=== PATIENT | male | born 1950 | race Caucasian/White ===

== ENCOUNTER 2017-02-23 17:46 | Inpatient (IN) | payer MEDICARE, OTHER ==
--- NOTE | ~2017-02-23 | CN ---
Consultation Report [facility] [address] [place]. [address] NAME: NIC WEISS : 48 STATUS : ADM IN [facility]#: [id number] AGE: 66 ADM/REG DATE : 02/23/17 MR#: [id number] REPORT SERV DATE: 02/25/17 DICTATED BY: JOSE ENRIQUE HART DATE: 02/25/17 REPORT STATUS : Draft TRANSCRIBED BY: MODAlvin DATE: 02/25/17 CONSULTATION DATE OF CONSULTATION: REASON FOR CONSULTATION: Mr. Nic Weiss is a 66-year-old male, who is referred for preop evaluation. CVD PHYSICIAN: Philip Molina M.D. HISTORY OF PRESENT ILLNESS: Mr. Nic Weiss is admitted for preparation for renal surgery. The operation is expected to be quite extensive and so, we are asked to risk stratify. His previous evaluation in 2014, resulting abnormal stress test which led to a catheterization which showed only minor luminal irregularities. Since that time, he has been fairly sedentary with no regular activity. He uses a wheelchair and has had back and hip discomfort. He does have significant risk factors for coronary artery disease to include hyperlipidemia, prior history of cigarette smoking, hypertension, and diabetes. Previously a Lexiscan showed apical ischemia. I am going to ask for a PET scan. REVIEW OF SYSTEMS: Negative, however not reassuring due to his very low level of exercise. He has had no palpitations, syncope, presyncope, chest pain, chest discomfort, PND, MAZARIEGOS, productive cough, change in bowel habits, or bruising. PAST MEDICAL HISTORY: 1. History of TIA. 2. Diabetes, currently on metformin. 3. Obstructive sleep apnea, on CPAP. 4. Hypertension. 5. Hyperlipidemia, on simvastatin and fenofibrate. 6. Renal mass. SOCIAL HISTORY: He is disabled. He smoked in the past. He does not drink. He lives a very inactive lifestyle. FAMILY HISTORY: Significant for cancer only. PHYSICAL EXAMINATION: VITAL SIGNS: Blood pressure is 132/62, pulse is 75. He is afebrile. GENERAL: Resting comfortably. Nutritional status appears adequate. EYES: PERRLA. LUNGS: No labored use of accessory muscles. Without rales or wheezes. COR: PMI is not displaced. No thrills or heaves. NL S1 and S2. No S3, murmur, click, or rub. Consultation Report [facility] [address] [place]. [address] NAME: NIC WEISS : 48 STATUS : ADM IN PAT#: [id number] AGE: 66 ADM/REG DATE : 02/23/17 MR#: [id number] REPORT SERV DATE: 02/25/17 DICTATED BY: JOSE ENRIQUE HART DATE: 02/25/17 REPORT STATUS : Draft TRANSCRIBED BY: DOLLY DATE: 02/25/17 PULSES: Carotids without bruits. ABD: +BS. Nontender. EXT: No cyanosis, clubbing, or edema. SKIN: No petechiae. NEURO: Alert and oriented. Does not appear anxious or depressed. LABORATORY EVALUATION: BNP is 88, potassium is 4.4, renal function is noted to be elevated at 1.7. EKG is still pending. ASSESSMENT: At this time, we will risk stratify with PET scan. Blood pressure is adequately controlled. Follow up renal function. CLEMENTE/DOLLY Jose Enrique Hart M.D. / [id number] CC: Zach Brown Max Russell
--- NOTE | ~2017-02-23 | DS ---
Discharge Summary [facility] [address] [place]. [address] NAME: NIC ESCOBAR : 48 STATUS : DIS IN PAT#: [id number] AGE: 66 ADM/REG DATE : 02/23/17 MR#: [id number] REPORT SERV DATE: 02/27/17 DICTATED BY: SHIRA WINN DATE: 02/26/17 REPORT STATUS : Draft TRANSCRIBED BY: MODL DATE: 02/26/17 ADMISSION DATE: 02/23/2017 DISCHARGE DATE: 02/26/2017 DISCHARGE DIAGNOSES: 1. Hematuria secondary to left renal mass, the patient is scheduled to see Dr. Finley for surgery next early week. 2. Acute blood loss anemia, did not require transfusion. 3. Hypertension, did not require hypertension medications, so we are going to hold off the medication until the surgery. 4. Chronic kidney disease. CONSULTANTS: 1. Dr. Finley. 2. Dr. Hart. PROCEDURES: 1. MRI of the abdomen for the renal mass. 2. Cardiac PET scan for preoperative evaluation which was low risk. HISTORY OF PRESENT ILLNESS: This is a 66-year-old male patient, who has been suffering from hematuria for a month, who came to the hospital to get evaluation done. Please see dictated H and P. HOSPITAL COURSE: He was admitted to hospital with hematuria and had evaluation. A CT of the abdomen and pelvis showed left kidney lower pole mass. Was seen by Dr. Finley in the hospital, ordered an MRI of the renal which showed renal vein involvement and a renal mass patient. The patient will need a left-sided nephrectomy. Prior to that, the patient was required to have a cardiac evaluation. Was seen by Dr. Hart in the hospital, had a PET cardiac scan. Had a low risk. The patient remained in stable condition, did not require any transfusion for the last three days he has been in the hospital. Did not have any acute anemia symptoms. I explained to the patient about the current diagnosis, plan of care, and followup plan, and he voiced understanding. He will be discharged home from this hospitalization, and he will come back for elective nephrectomy surgery early next week. DISCHARGE MEDICATION: He will hold aspirin, hydrochlorothiazide, and lisinopril until the surgery. Continue the other medications. DISPOSITION: The patient is discharged home in stable condition. Will have elective surgery next week with Dr. Finley. TIME SPENT: More than 30 minutes. EKL/MODL Discharge Summary [address] [place]. [address] NAME: NIC ESCOBAR : 49 STATUS : DIS IN PAT#: [id number] AGE: 66 ADM/REG DATE : 02/23/17 MR#: [id number] REPORT SERV DATE: 02/27/17 DICTATED BY: SHIRA WINN DATE: 02/26/17 REPORT STATUS : Draft TRANSCRIBED BY: DOLLY DATE: 02/26/17 Shira Winn M.D. / [id number] CC: Zach Brown II
--- NOTE | ~2017-02-23 | HP ---
History And Physical [facility] [address] [facility] [place]. [address] NAME: NIC ESCOBAR : 48 STATUS : REG ER PAT#: [id number] AGE: 66 ADM/REG DATE : 02/23/17 MR#: [id number] REPORT SERV DATE: 02/23/17 DICTATED BY: LUPILLO DUNN DATE: 02/23/17 REPORT STATUS : Draft TRANSCRIBED BY: MODAlvin DATE: 02/23/17 DATE OF ADMISSION: 02/23/2017 The patient is a 66-year-old male, who presented to [facility] because of hematuria of one month's duration which was treated per his primary care provider, Keyshawn Paz with ciprofloxacin. The patient reported that he is very weak. He had weight loss and decreased appetite, extremely weak, cannot even sit in bed as well as he is complaining of intermittent hematuria. He denies any chest pain or shortness of breath. He has back pain which has increased from the baseline, but he says that he had four back surgeries in the past. He always had a chronic back pain and he said sometimes also belly pain. He denies any chest pain or shortness of breath. No rash. No headache. All 14-point review of system done and negative except what is stated in the history of present illness. PAST MEDICAL HISTORY: Past medical history per patient is known for history of hypertension, hyperlipidemia, diabetes, diabetic neuropathy. The patient denied any history of heart attacks. No history of strokes. Although the patient denied any history of heart attacks. It looks like he was seen by Dr. Molina in the past and he had cardiac evaluation by Dr. Molina prior back surgery for presurgical evaluation. He was cleared by Dr. Molina. The patient denied any history of thyroid disease as well. He has obstructive sleep apnea for which he takes CPAP mask at home. I told the to bring CPAP mask and use here. PAST SURGICAL HISTORY: Includes history of hip replacement, four back surgeries, neck surgery, and hip surgery. SOCIAL HISTORY: Quit smoking 20 years ago, used to smoke one pack per day. No alcohol. No recreational drug use. He has seven children. HOME MEDICATIONS: Include Tylenol 650 to 975 twice a day, amitriptyline 25 mg at bedtime, aspirin 81 mg daily, ciprofloxacin 500 p.o. b.i.d., Klonopin 0.5 p.o. b.i.d., fenofibrate 145 daily, hydrocodone with acetaminophen 1 tablet p.o. twice daily p.r.n. for pain, lisinopril with HCTZ one tablet p.o. daily, Bystolic 5 mg p.o. daily, nitroglycerin 0.4 mg sublingually, paroxetine 20 mg daily, simvastatin 40 mg daily, Januvia 100 mg daily. FAMILY HISTORY: Mother of stroke. Father of a cancer. He said the cancer was in his chest, but he does not know what type of cancer. ALLERGIES: NO KNOWN DRUG ALLERGIES. PHYSICAL EXAMINATION: GENERAL: Obese male, not in acute distress. Resting quietly. VITAL SIGNS: Blood pressure 129/55, temperature 98.5, heart rate 81, respirations 16, and oxygen saturation 98 on room air. HEENT: Head is atraumatic, normocephalic. Conjunctivae clear. Pupils are equal and reactive to light and accommodation. Extraocular muscles are intact. History And Physical [address] [address] NAME: NIC ESCOBAR : 48 STATUS : REG ER PAT#: [id number] AGE: 66 ADM/REG DATE : 02/23/17 MR#: [id number] REPORT SERV DATE: 02/23/17 DICTATED BY: LUPILLO DUNN DATE: 02/23/17 REPORT STATUS : Draft TRANSCRIBED BY: DOLLY DATE: 02/23/17 NECK: Supple. Trachea is midline. No supraclavicular or cervical lymphadenopathy. LUNGS: Diminished breath sounds bilaterally. Decreased respiratory effort. CARDIOVASCULAR: Regular rate and rhythm. Point of maximal impulse not displaced. ABDOMEN: Soft, obese, nontender, nondistended. Positive, normoactive bowel sounds. EXTREMITIES: No clubbing, cyanosis. No edema. NEUROLOGICAL: He is awake, alert, oriented in time, place, and person. Muscle strength is 5/5 bilaterally on upper and lower extremities. SKIN: Normal color and turgor. PSYCHIATRIC: Normal mood, slightly flat affect. LABORATORY RESULTS: Sodium 136, potassium 4.7, chloride 103, carbon dioxide 25, BUN 20, creatinine 2, blood sugar 124, ALT 19, AST 41. White count 9.4, hemoglobin 9.7, hematocrit 29.7, MCV 76.9, platelet count 332. UA showed large amount of blood, more than 182 red blood cells. Chest x-ray, mild central venous congestion. CT of the abdomen and pelvis showed large mass arising from the lower pole consistent with malignancy. Recommend additional contrast in his CT or MRI for further evaluation. Also the CT showed tiny nodule versus what is more likely some branching vessels in the right lung measuring 5 to 5 mm, fullness of left renal vein suggesting underlying tumor or thrombus present there. The vena cava itself without contrast does not show any gross abnormality. With intraluminal contrast, this could be assessed for clot or tumor extension. ASSESSMENT AND PLAN: 1. This is a 66-year-old male, who presented with hematuria for one month's duration, weakness, weight loss, decreased appetite, and lower abdominal pain. Was found to have left renal mass, highly suspicious for malignancy. 2. Questionable lung nodule. 3. Acute kidney injury on chronic kidney disease. 4. Diabetes. 5. Hypertension. 6. Obstructive sleep apnea. We will admit the patient to medical-surgical telemetry. We will monitor him closely. We will give him gentle IV fluid hydration. We will check his brain natriuretic peptide. We will request old records from Dr. Molina if he had any cardiac problems in the past. Regarding his kidney mass, I will consult urologist Dr. Pina and I will order ultrasound on the kidney. Regarding acute kidney injury on chronic kidney disease and creatinine is 2, we will start gentle IV hydration with monitor of patient's volume status and we will check his BNP to be sure he does not have congestive heart failure. Hypertension. We will stop his EVA inhibitor and give him hydralazine p.r.n. as well as continue Bystolic. Diabetes type 2. We will put him on insulin sliding scale. We will hold his oral antidiabetics. History And Physical [address] [place]. [address] NAME: NIC ESCOBAR : 49 STATUS : REG ER PAT#: [id number] AGE: 66 ADM/REG DATE : 02/23/17 MR#: [id number] REPORT SERV DATE: 02/23/17 DICTATED BY: LUPILLO DUNN DATE: 02/23/17 REPORT STATUS : Draft TRANSCRIBED BY: MODL DATE: 02/23/17 Obstructive sleep apnea. We recommend the patient to wear CPAP mask at home. My partner will see this patient starting tomorrow morning. Currently, he is on under observational status. /DOLLY Lupillo Dunn M.D. / [id number]
--- NOTE | ~2017-02-23 | CN ---
Consultation Report [facility] [address] [place]. [address] NAME: NIC WEISS : 48 STATUS : ADM IN [facility]#: [id number] AGE: 66 ADM/REG DATE : 02/23/17 MR#: [id number] REPORT SERV DATE: 02/24/17 DICTATED BY: YOUSIF FINLEY JR. DATE: 02/24/17 REPORT STATUS : Draft TRANSCRIBED BY: DOLLY DATE: 02/24/17 CONSULTATION NOTE DATE OF CONSULTATION: 02/24/2017 CHIEF COMPLAINT: Left renal mass. HISTORY OF PRESENT ILLNESS: Mr. Weiss is a 66-year-old gentleman, who presented to [facility] because of a one-month history of gross hematuria. He was treated initially for urinary tract infection, but his hematuria did not resolve. He started having weight loss and decreased appetite with anorexia and weakness and he presented to the emergency room. A CT scan was performed which revealed a very large renal mass in the lower pole of the left kidney on noncontrast imaging with what appears to be a dilated renal vein on that same side. There was some question as to whether or not this is a renal vein thrombus or a renal tumor thrombus. PAST MEDICAL HISTORY: Significant for multiple back surgeries as well as neck surgeries, hypertension, hyperlipidemia, diabetes, diabetic neuropathy. No history of stroke or myocardial infarction. PAST SURGICAL HISTORY: The above-mentioned back surgeries, neck surgery, hip surgery, and hip replacement surgery. SOCIAL HISTORY: He quit smoking 20 years ago. He does not drink alcohol or use illicit drugs. HOME MEDICATIONS: Include Tylenol, amitriptyline, aspirin, ciprofloxacin, Klonopin, fenofibrate, hydrocodone, acetaminophen, lisinopril, hydrochlorothiazide, Bystolic, nitroglycerin, paroxetine, simvastatin, and Januvia. FAMILY HISTORY: Mother of a stroke. Father of cancer. ALLERGIES: NONE KNOWN. PHYSICAL EXAMINATION: GENERAL: He is a well-nourished, well-developed, obese male, in no acute distress. HEENT: Normocephalic, atraumatic. He is afebrile. VITAL SIGNS: Stable. CHEST: Clear to auscultation bilaterally. HEART: Regular rate and rhythm. ABDOMEN: Soft, nontender, nondistended without palpable hernias. GENITOURINARY: Exam was deferred today. EXTREMITIES: Warm without cyanosis, clubbing, or edema. Consultation Report [facility] [id number] [place]. [address] NAME: NIC WEISS : 49 STATUS : ADM IN PAT#: [id number] AGE: 66 ADM/REG DATE : 02/23/17 MR#: [id number] REPORT SERV DATE: 02/24/17 DICTATED BY: YOUSIF FINLEY JR. DATE: 02/24/17 REPORT STATUS : Draft TRANSCRIBED BY: DOLLY DATE: 02/24/17 LABORATORY: Reveals a BUN of 20 with a creatinine of 2.0. Electrolytes within normal limits. White count 9.4 with a hemoglobin of 9.7, platelet count 332. ASSESSMENT: Large left renal mass with possible renal vein thrombus or tumor. I discussed the case with Dr. Alegria as well as Dr. Cricket Garcia, our radiologist to assess the type of imaging that might work best to evaluate this mass. An MRI without contrast seemed to be the consensus which has been ordered and we will see if we can elucidate idea on the renal vein with that. We will plan delayed surgical extirpation. If possible, he will need a cardiac evaluation first. We will follow. SHAWN/DOLLY Yousif Finley Jr., M.D. / [id number] CC: Zach Brown Max Russell
[2017-02-23 13:45] LABS: WBC (NOT ORDERED) (RFLEX) 0 (0-5)
[2017-02-23 13:47] LABS: MEAN CORPUS HGB CONC 32.7 g/dL (32.0-36.0); MEAN CORPUSCULAR HEMOGLOB 25.1 pg (26.0-34.0); PLATELET COUNT 332 10/3/uL (150-400); RBC DISTRIBUTION WIDTH 14.9 % (12.0-16.0); WHITE BLOOD CELLS 9.4 10/3/uL (4.5-10.5)
[2017-02-23 13:50] LABS: HEMATOCRIT 29.7 % (40.0-51.0); HEMOGLOBIN 9.7 g/dL (13.6-17.8); MEAN CORPUSCULAR VOLUME 76.9 fL (80-100); RED CELL COUNT 3.86 10/6/uL (4.7-6.1)
[2017-02-23 13:51] LABS: MANUAL DIFF YES %
[2017-02-23 13:56] LABS: ASCORBIC ACID (UR NOT ORDER) NEG (NEG); BILIRUBIN, URINE NEGATIVE (NEG); ER URINALYSIS TAT 0 Hrs 13 Mins; KETONE, URINE NEGATIVE (NEG); LEUKOCYTE ESTERASE(NOT OR NEG (NEG); NITRITE (URINE) NEG (NEG)
[2017-02-23 14:04] LABS: A/G RATIO 0.5 (0.7-1.9); ALKALINE PHOSPHATASE 78 U/L (45-117); BUN (BLOOD UREA NITROGEN) 20 MG/DL (6-23); CALCIUM, SERUM 9.8 MG/DL (8.5-10.4); CHLORIDE, SERUM 103 MMOL/L (96-112); CO2 (CARBON DIOXIDE) 25 MMOL/L (24-34); CREATININE 2.01 MG/DL (0.70-1.30); GFR AFRICAN AMERICAN 39 ML/MIN (>=60); GFR NON AFRICAN AMERICAN 33 ML/MIN (>=60); GLOBULIN 5.5 G/DL (2.5-4.1); GLUCOSE, SERUM 124 MG/DL (60-99); POTASSIUM, SERUM 4.7 MMOL/L (3.5-5.3); SGOT(AST) 41 U/L (5-40); SGPT(ALT) 19 U/L (5-65); SODIUM, SERUM 136 MMOL/L (135-148); TOTAL BILIRUBIN 0.3 MG/DL (0-1.2); TOTAL PROTEIN 8.5 G/DL (6.0-8.5)
[2017-02-23 14:26] LABS: EOSINOPHILS 2 %; EOSINOPHILS ABSOLUTE (CALC) 0.19 10/3/uL (0.0-0.53); ER DIFF TAT 0 Hrs 43 Mins; HYPOCHROMIA 1+ (3-10/OIF) (0-2/OIF); LYMPHOCYTES 30 %; LYMPHOCYTES ABSOLUTE (CALC) 2.82 10/3/uL (0.67-4.30); MICROCYTES 1+ (5-10/OIF) (0-5/OIF); MONOCYTES 11 %; MONOCYTES ABSOLUTE (CALC) 1.03 10/3/uL (0.21-1.20); NEUTROPHILS ABSOLUTE (CALC) 5.36 10/3/uL (2.02-8.40); PLATELET ESTIMATE ADQ (ADEQUATE); SEGMENTED NEUTROPHIL (0) 57 %; TOTAL NUCLEATED CELLS 100
[~2017-02-23 17:46] MED LIST: ADVAIR250 INH; AMIT25 PO; ASAB PO; BYSTOLIC10 MG PO; BYSTOLIC5 MG PO; CIP5 PO; GLUCPH PO; GOODY POWDER PO; HYDROCHLOROT25 MG PO; JANUVIA100 MG PO; KLONO5 PO; LIOR10 PO; LORT7 PO; LYRICA100 MG PO; NITROSTAT0.4 MG SL; NORCO1 TAB PO; PAX20 PO; PAXIL40 MG PO; PRIN20 PO; T PO; TRICOR145 PO; ZESTORETIC1 TA1 PO; ZOCOR40 PO; ZYRTEC ALLGY10 MG PO
[2017-02-23 19:26] LABS: INTERNATIONAL NORMAL RATI 1.3 UNITS (-); PARTIAL THROMBO TIME 38.1 SEC (22.5-37.2)
[2017-02-23 19:36] LABS: B NATRIURETIC PEPTIDE (BNP) 88.4 PG/ML (< 100.0)
[2017-02-23 21:32] LABS: GLYCOHEMOGLOBIN (HbA1c) 7.1 % (4.7-6.1)
[2017-02-24 03:49] LABS: BASOPHILS 0.2 %; BASOPHILS ABSOLUTE 0.02 10/3/uL (0.0-0.16); EOSINOPHILS 1.8 %; EOSINOPHILS ABSOLUTE 0.16 10/3/uL (0.0-0.53); HEMATOCRIT 30.3 % (40.0-51.0); HEMOGLOBIN 9.6 g/dL (13.6-17.8); IMMATURE GRANULOCYTES 0.9 %; IMMATURE GRANULOCYTES ABSOLUTE 0.08 10/3/uL (0.0-0.11); LYMPHOCYTES 40.6 %; MANUAL DIFF NO %; MEAN CORPUS HGB CONC 31.7 g/dL (32.0-36.0); MEAN CORPUSCULAR HEMOGLOB 24.7 pg (26.0-34.0); MEAN CORPUSCULAR VOLUME 77.9 fL (80-100); MEAN PLATELET VOLUME 9.3 fL (9.2-13.0); MONOCYTES 13.2 %; MONOCYTES ABSOLUTE 1.17 10/3/uL (0.21-1.20); NEUTROPHILS 43.3 %; NEUTROPHILS ABSOLUTE 3.84 10/3/uL (2.02-8.40); PLATELET COUNT 342 10/3/uL (150-400); RBC DISTRIBUTION WIDTH 14.8 % (12.0-16.0); RED CELL COUNT 3.89 10/6/uL (4.7-6.1); WHITE BLOOD CELLS 8.9 10/3/uL (4.5-10.5)
[2017-02-24 04:00] LABS: BUN (BLOOD UREA NITROGEN) 19 MG/DL (6-23); CALCIUM, SERUM 9.4 MG/DL (8.5-10.4); CHLORIDE, SERUM 102 MMOL/L (96-112); CO2 (CARBON DIOXIDE) 26 MMOL/L (24-34); CREATININE 1.81 MG/DL (0.70-1.30); GFR AFRICAN AMERICAN 44 ML/MIN (>=60); GFR NON AFRICAN AMERICAN 38 ML/MIN (>=60); GLUCOSE, SERUM 119 MG/DL (60-99); POTASSIUM, SERUM 4.5 MMOL/L (3.5-5.3); SODIUM, SERUM 136 MMOL/L (135-148)
[2017-02-25 05:50] LABS: BASOPHILS 0.1 %; BASOPHILS ABSOLUTE 0.01 10/3/uL (0.0-0.16); EOSINOPHILS 2.1 %; EOSINOPHILS ABSOLUTE 0.18 10/3/uL (0.0-0.53); HEMOGLOBIN 9.9 g/dL (13.6-17.8); IMMATURE GRANULOCYTES 1.1 %; IMMATURE GRANULOCYTES ABSOLUTE 0.09 10/3/uL (0.0-0.11); LYMPHOCYTES 37.4 %; LYMPHOCYTES ABSOLUTE 3.19 10/3/uL (0.67-4.30); MEAN CORPUSCULAR HEMOGLOB 25.1 pg (26.0-34.0); MEAN CORPUSCULAR VOLUME 75.9 fL (80-100); MEAN PLATELET VOLUME 9.2 fL (9.2-13.0); MONOCYTES 13.2 %; MONOCYTES ABSOLUTE 1.13 10/3/uL (0.21-1.20); NEUTROPHILS 46.1 %; NEUTROPHILS ABSOLUTE 3.93 10/3/uL (2.02-8.40); PLATELET COUNT 333 10/3/uL (150-400); RBC DISTRIBUTION WIDTH 14.8 % (12.0-16.0); RED CELL COUNT 3.95 10/6/uL (4.7-6.1); WHITE BLOOD CELLS 8.5 10/3/uL (4.5-10.5)
[2017-02-25 05:52] LABS: MANUAL DIFF NO %
[2017-02-25 06:04] LABS: BUN (BLOOD UREA NITROGEN) 18 MG/DL (6-23); CALCIUM, SERUM 9.4 MG/DL (8.5-10.4); CHLORIDE, SERUM 99 MMOL/L (96-112); CO2 (CARBON DIOXIDE) 24 MMOL/L (24-34); CREATININE 1.68 MG/DL (0.70-1.30); GFR AFRICAN AMERICAN 48 ML/MIN (>=60); GFR NON AFRICAN AMERICAN 41 ML/MIN (>=60); GLUCOSE, SERUM 120 MG/DL (60-99); POTASSIUM, SERUM 4.4 MMOL/L (3.5-5.3); SODIUM, SERUM 133 MMOL/L (135-148)
[2017-03-03] MEDS ORDERED: ASAB PO (11:01)
[2017-03-03] MEDS ORDERED: ZESTORETIC1 TA1 PO (11:03)
[2017-03-03] MEDS ORDERED: ZOFRAN4 PO (11:04)
== END 2017-02-26 12:43 | disposition home or self-care (01) | DRG 687 ==
LOC: CDU1 17:46
PROVIDERS: Emergency Medicine; Hospitalist; Internal Medicine
DX: D41.02 Neoplasm of uncertain behavior of left kidney (principal); D62 Acute posthemorrhagic anemia; N17.9 Acute kidney failure, unspecified; I82.3 Embolism and thrombosis of renal vein; E11.22 Type 2 diabetes mellitus with diabetic chronic kidney disease; R31.0 Gross hematuria; I12.9 Hypertensive chronic kidney disease with stage 1 through stage 4 chronic kidney disease, or unspecified chronic kidney disease; N18.9 Chronic kidney disease, unspecified; G47.33 Obstructive sleep apnea (adult) (pediatric); Z87.891 Personal history of nicotine dependence; Z79.82 Long term (current) use of aspirin; Z79.891 Long term (current) use of opiate analgesic; Z79.84 Long term (current) use of oral hypoglycemic drugs; E66.9 Obesity, unspecified; Z68.38 Body mass index [BMI] 38.0-38.9, adult; Z86.73 Personal history of transient ischemic attack (TIA), and cerebral infarction without residual deficits; Z96.641 Presence of right artificial hip joint; G89.29 Other chronic pain; M54.9 Dorsalgia, unspecified; G51.0 Bell's palsy; R91.8 Other nonspecific abnormal finding of lung field
CPT/HCPCS: 71010; 71250; 72195; 74176; 74181; 78492; 80048; 80053; 81001; 81003; 82962; 83036; 83735; 83880; 85025; 85610; 85730; 87086; 93005; 93017; 94640; 99284; A9270-GY; A9555; G0463; J2785

== ENCOUNTER 2017-03-04 06:28 | Inpatient (IN) | payer MEDICARE, OTHER ==
--- NOTE | ~2017-03-04 | HP ---
History And Physical [facility] [address] [place]. [address] NAME: NIC WEISS : 48 STATUS : ADM [facility]#: [id number] AGE: 66 ADM/REG DATE : 03/04/17 MR#: [id number] REPORT SERV DATE: 03/06/17 DICTATED BY: YOUSIF FINLEY JR. DATE: 03/06/17 REPORT STATUS : Draft TRANSCRIBED BY: DOLLY DATE: 03/06/17 DATE OF ADMISSION: 03/04/2017 CHIEF COMPLAINT: Left renal tumor with apparent distant metastases to the lung with gross hematuria and anemia. HISTORY OF PRESENT ILLNESS: Mr. Weiss is a 66-year-old gentleman, who was admitted on 02/23/2017, with gross hematuria and anemia secondary to what was felt to be a large tumor in his left kidney. Upon further workup, this was found to be an invasive tumor into the renal hilum causing his hematuria as well as a renal vein thrombus all the way over to the vena cava but not entering the vena cava by CT or MRI. He comes today for resection of this mass as a palliative procedure with plans for postoperative oncologic consultation. PAST MEDICAL HISTORY: Significant for hypertension, hyperlipidemia, diabetes, and diabetic neuropathy. He has been seen by Dr. Molina for clearance for prior back surgery, was not identified as having any coronary artery disease at that time. PAST SURGICAL HISTORY: Hip replacement, 4 back surgeries, neck surgery, and hip surgery. SOCIAL HISTORY: He quit smoking 20 years ago. He does not drink alcohol to abusive levels nor does he use recreational drugs. HOME MEDICATIONS: Include Tylenol; amitriptyline; aspirin; ciprofloxacin; Klonopin; fenofibrate; hydrocodone; lisinopril; Bystolic; nitroglycerin; paroxetine; simvastatin; and Januvia. FAMILY HISTORY: Mother of a stroke. Father of cancer. ALLERGIES: NONE KNOWN. REVIEW OF SYSTEMS: 10 system review was performed and was essentially negative other than that stated above. PHYSICAL EXAMINATION: VITAL SIGNS: He is afebrile. His vital signs are stable. GENERAL: He is an obese male, in no acute distress. HEENT: Normocephalic and atraumatic. NECK: Symmetric. CHEST: Clear to auscultation bilaterally. HEART: Regular rate and rhythm. ABDOMEN: Soft, nontender, nondistended without palpable hernias. EXTREMITIES: Warm without cyanosis, clubbing, or edema. LAB DATA: Preoperative labs include normal electrolytes, a creatinine of 1.68, white blood cell count of 8.5, hemoglobin 9.9, on the day of surgery, his hemoglobin was down to 9.0 preoperatively. History And Physical [address] [place]. [address] NAME: NIC WEISS : 48 STATUS : ADM IN [facility]#: [id number] AGE: 66 ADM/REG DATE : 03/04/17 MR#: [id number] REPORT SERV DATE: 03/06/17 DICTATED BY: YOUSIF FINLEY JR. DATE: 03/06/17 REPORT STATUS : Draft TRANSCRIBED BY: DOLLY DATE: 03/06/17 ASSESSMENT: 1. 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 2. Anemia of chronic disease. RECOMMENDATIONS: We will plan open left radical nephrectomy with adrenalectomy and renal vein resection with postoperative ICU monitoring and consultation with Oncology once he is more stable to decide on adjuvant therapy. SHAWN/DOLLY Yousif Finley Jr., M.D. / [id number] CC: Zach Herman Jr.
--- NOTE | ~2017-03-04 | DS ---
Discharge Summary [facility] [address] [place]. [address] NAME: NIC ESCOBAR : 48 STATUS : DIS IN PAT#: [id number] AGE: 66 ADM/REG DATE : 03/04/17 MR#: [id number] REPORT SERV DATE: 03/19/17 DICTATED BY: YOUSIF FINLEY JR. DATE: 03/18/17 REPORT STATUS : Draft TRANSCRIBED BY: DOLLY DATE: 03/18/17 Data Collection from hospitalization DISCHARGE DIAGNOSES: 1. 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 2. Hypertension. 3. Diabetes. 4. Hyperlipidemia. 5. Diabetic neuropathy. 6. Former smoker. CONSULTATION: Dr. Rafal Ram. PROCEDURES PERFORMED: Left radical nephrectomy with adrenalectomy and renal vein resection, 03/04/2017. PATHOLOGY: Kidney and adrenal gland, left radical nephrectomy-renal cell carcinoma. DISCHARGE MEDICATIONS: Elavil 25 mg at bedtime, TriCor 145 mg at bedtime, Zestoretic one tablet every morning, Bystolic 5 mg every morning, Paxil 20 mg every morning, Zocor 40 mg every morning, Klonopin 0.5 mg twice a day, Januvia 100 mg every day at bedtime, Nitrostat 0.4 mg sublingually as needed, Drifton one tablet twice a day as needed, Tylenol 650-975 mg twice a day as needed, aspirin 81 mg every day at bedtime, Zofran 4 mg every eight hours as needed. CONDITION AT DISCHARGE: Stable. DISPOSITION: The patient was discharged to [facility] on a mechanical soft diet with activities as instructed. He would follow up with Dr. Rafal Ram, 03/20/2017. He would follow up with [place] two weeks following discharge. HOSPITAL COURSE: This is a 66-year-old man, who has been admitted on 02/23/2017 with gross hematuria and anemia secondary to what was felt to be a large tumor in the left kidney. On further workup, this was found to be an invasive tumor into the renal hilum causing his hematuria as well as renal vein thrombus all the way over to the vena cava, but not entering the vena cava by CT or MRI. He presented on the day of this admission for resection of this mass as a palliative procedure with plans for postoperative on oncologic consultations. He was admitted to the hospital at this time for further evaluation and treatment. Upon admission, creatinine level was 1.68. White count was 8.5. He was taken to the operating room, where he underwent the above-mentioned procedure. He tolerated this well and there were no complications. On postop day #1, his pain was controlled with the epidural. His incisions were clean, dry, and intact. He was up sitting in a chair. The Hugo catheter was removed. He had good pain control. His creatinine level increased to 2.03. On the 7th, his T-max had been 102.5. He became afebrile. He did have a couple of bowel movements. White count was 16.4. He was started on a full liquid diet. The next day, he continued to do well. Hemoglobin level was stable. He was transferred to the floor. We encouraged him to ambulate with Physical Therapy. His Hugo catheter was Discharge Summary [address] [address] NAME: NIC ESCOBAR : 48 STATUS : DIS IN PAT#: [id number] AGE: 66 ADM/REG DATE : 03/04/17 MR#: [id number] REPORT SERV DATE: 03/19/17 DICTATED BY: YOUSIF FINLEY JR. DATE: 03/18/17 REPORT STATUS : Draft TRANSCRIBED BY: DOLLY DATE: 03/18/17 removed. The epidural catheter was discontinued and he was placed on oral medications. He was started on a soft diet. On 03/08/2017, his incisions remained clean, dry, and intact. O2 was being weaned. He was evaluated by Physical Therapy. Discharge planning was performed. He was tolerating his diet. He still had some physical therapy issues with transfers. Discharge planning was performed. He was seen in consultation by Dr. Rafal Ram regarding renal cell carcinoma. 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 The patient was recovering from surgery. He had mild soreness in his abdomen, but it was gradually improving. It was felt that the renal cell carcinoma was likely metastatic. Treatment options were discussed. An MRI of the brain would be performed as an outpatient. He was then scheduled a followup appointment upon discharge from the hospital. The patient does have anemia, which was felt likely secondary to iron deficiency. Ferritin was going to be checked. On 03/10/2017, the vital signs were stable and he was afebrile. His incisions were clean, dry, and intact. Discharge instructions were given. Due to his improved and stable condition, he was discharged to [facility] with the above-stated instructions. Information collected by: Kelsey Monge I submit the above information as my discharge summary. NICOLLE/DOLLY Yousif Finley Jr., M.D. / [id number] CC: Zach Herman Jr.[facility] Rafal Ram III, M.D. [facility]
--- NOTE | ~2017-03-04 | OP ---
Record Of Operation [facility] [address] [place]. [address] NAME: NIC WEISS : 49 STATUS : ADM IN [facility]#: [id number] AGE: 66 ADM/REG DATE : 03/04/17 MR#: [id number] REPORT SERV DATE: 03/04/17 DICTATED BY: YOUSIF FINLEY JR. 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 PROCEDURE PERFORMED: Left radical nephrectomy with adrenalectomy and renal vein resection. COMPLICATIONS: None. CONSULTATIONS: None. ANESTHESIA: General with endotracheal tube. ESTIMATED BLOOD LOSS: 2200 mL. SPECIMENS: Left kidney, left adrenal. INDICATIONS: Mr. Weiss is a 66-year-old gentleman, who was admitted to the hospital last week after finding gross hematuria. He had a fairly significant blood loss with a hemoglobin starting in the case at 9.0. Imaging showed what appears to be a large renal mass on the left side with a renal vein thrombus all the way over to the vena cava, but not entering the vena cava as best it can be told from MRI and noncontrast CT. He also had some possible mediastinal lymph nodes and several small calcified masses in the lungs that were suspicious for metastatic disease. Based on his amount of hemorrhage, however I did not feel that this was an elective procedure but more of a palliative nephrectomy for bleeding and pain. He was likely require chemotherapy postoperatively, but will certainly get an evaluation by Hematology/Oncology Service. He had cardiac clearance preop from Dr. Molina. PROCEDURE IN DETAIL: After the patient was identified and proper informed consent was obtained, he was taken to the operating room. General anesthesia was performed without complication using an endotracheal tube. He was then prepped and draped in normal sterile fashion in the supine position. A john-Chevron incision was made in the standard fashion down to the level of the rectus fascia. Finding the center of the abdominal wall, I then incised the peritoneum between the two rectus sheaths and then incised the fascia with a finger inside the abdomen throughout the incisional length. Once I had done this, I placed the Omni retractor on the left side of the table in a U fashion. I then used the Omni to retract the abdominal wall, so that I could get better visualization of the abdominal contents. The renal mass was palpable through the wall of the rectum and mesentery. The white line of Toldt was incised and the colon reflected medially off this very large renal tumor that was palpable down to the pelvic inlet as well as up below the spleen using great care not to avulse the splenic vasculature or injure the splenic artery. I continued my dissection around the splenic flexure of the colon to mobilize the colon and its mesentery. The mesentery was not adherent to the anterior surface of the kidney or Gerota fascia and I did dissect down reasonably well. He did have a large amount of parasitic vasculature that Record Of Operation [facility] [address] [facility] [place]. [address] NAME: NIC WEISS : 49 STATUS : ADM IN PAT#: [id number] AGE: 66 ADM/REG DATE : 03/04/17 MR#: [id number] REPORT SERV DATE: 03/04/17 DICTATED BY: YOUSIF FINLEY JR. DATE: 03/04/17 REPORT STATUS : Draft TRANSCRIBED BY: DOLLY DATE: 03/04/17 was difficult to deal with. We used hemoclips and electrocautery to try to slow down some of this bleeding. I also used the CAIN stapling device in some places to try and manage these large serpiginous vascular vessels. Once I had the colon completely reflected and identified the 3rd and 4th portions of the duodenum, I continued to mobilize the duodenum as the renal vein thrombus extended all the way to the vena cava. I then turned my attention to the lower pole identifying a large gonadal vein. This was ligated and transected using an endovascular CAIN stapling device. I then identified the ureter, ligated and transected it using hemoclips. I then dissected up along the psoas muscle. The tumor was adherent to the fascia of the psoas muscle in some areas, and I brought the fascia of the psoas muscle along with the tumor in those areas. I then continued my dissection laterally around the superior pole of the kidney using the ligature and also some endovascular CAIN linda until I was able to isolate the renal hilum by itself. I then rotated the kidney anteriorly to identify the aorta and I dissected up the aorta to the base of the renal artery. This was ligated using a 0 silk tie and then an endovascular CAIN stapling device distal to the tie. I then had only remaining the renal vein with thrombus. It was palpable under the SMA over to the vena cava. I was able to place a right angle around the renal vein at its entrance into the vena cava and placed to a #1 silk ties on the renal vein at this level. I then was able to pull back the thrombus enough to place an endovascular CAIN stapling device across the most distal portion of the renal vein but proximal to my sutures and then ligated and transected the renal vein and the kidney specimen was removed. I then took the specimen to Pathology. The renal vein was open and the tumor thrombus was intact and not adherent to the wall in the area of the transection. At that point, I went back to the operating room. I irrigated the retroperitoneum and inspected for hemostasis and no real major bleeding at this point, just some oozing along the psoas muscle. I used some FloSeal in this area. The spleen was inspected and I did not note any bleeding from the spleen. The color of the spleen looked good and there was no evidence of any splenic disruption or injury. I inspected the small intestine along with the duodenum and did not note any evidence of injury there. The colon was normal as well. I then replaced the colon in its normal location and brought down the omentum over the small intestine and then began closure. The wound was closed by reapproximating all fascia layers using multiple layers of 0 looped PDS suture with some interrupted #1 Vicryl dihwbh-pj-zumvi sutures to maintain a nice tight closure along the wound length. Once the fascial layers have been reapproximated, I irrigated the wound copiously and closed the subcutaneous tissue in 2 layers of 3-0 Vicryl suture, one in the Reagan's fascia and one in the subcutaneous tissues to finish closure the space. I then closed the skin using a 4-0 Monocryl and the Airstrip was used for dressing. The patient was awakened in the operating room and transferred to the postanesthesia care unit in stable condition. SHAWN/DOLLY Yousif Finley Jr., M.D. / [id number] Record Of Operation [address] [address] NAME: NIC WEISS : 49 STATUS : ADM IN PAT#: [id number] AGE: 66 ADM/REG DATE : 03/04/17 MR#: [id number] REPORT SERV DATE: 03/04/17 DICTATED BY: YOUSIF FNILEY JR. DATE: 03/04/17 REPORT STATUS : Draft TRANSCRIBED BY: MODL DATE: 03/04/17 CC: Yousif Finley Jr., M.D.
--- NOTE | ~2017-03-04 | CN ---
Consultation Report [facility] [address] [place]. [address] NAME: NIC WEISS : 48 STATUS : ADM [facility]#: [id number] AGE: 66 ADM/REG DATE : 03/04/17 MR#: [id number] REPORT SERV DATE: 03/10/17 DICTATED BY: KATEY LUTHER III DATE: 03/09/17 REPORT STATUS : Draft TRANSCRIBED BY: DOLLY DATE: 03/09/17 CONSULTATION DATE OF CONSULTATION: 03/09/2017 REASON FOR CONSULTATION: Renal cell carcinoma. HISTORY OF PRESENT ILLNESS: Mr. Weiss is a 66-year-old man who had roughly 1 month of hematuria, which did not respond with antibiotics. He notes this has been intermittent and lead to progressive fatigue and difficulty performing his normal ADLs. He presented to the emergency department and was found to have a left renal mass suspicious for a locally advanced renal cell carcinoma. Additionally, a CT scan of his chest revealed bilateral hilar lymph nodes as well as pulmonary nodules concerning for metastatic disease. 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 He presently is recovering from this surgery. He has some mild soreness in his abdomen that has been ongoing since surgery, but gradually improving. He thinks he may be going home in the morning. PAST MEDICAL HISTORY: 1. Hypertension. 2. Hyperlipidemia. 3. Diabetes. 4. Diabetic neuropathy. PAST SURGICAL HISTORY: 1. Hip replacement. 2. Four spine surgeries. SOCIAL HISTORY: Significant for past smoking, he did stop roughly 20 years ago. There is no alcohol or drug abuse. HOME MEDICATION LIST: His home medication list was reviewed and per the home med list. FAMILY HISTORY: Significant for CVA in his father with cancer. REVIEW OF SYSTEMS: A comprehensive review of systems was performed and is negative unless noted in the HPI. PHYSICAL EXAMINATION: VITAL SIGNS: Blood pressure is 92/50, temperature is 98.4, pulse is 67, and respirations 21. GENERAL: A well-developed overweight man, in no acute distress. EYES: Pupils are round and reactive to light. Extraocular muscles are intact. There are anicteric sclerae. Consultation Report [facility] [address] [facility] [address] [place]. [address] NAME: NIC WEISS : 49 STATUS : ADM IN PAT#: [id number] AGE: 66 ADM/REG DATE : 03/04/17 MR#: [id number] REPORT SERV DATE: 03/10/17 DICTATED BY: KATEY LUTHER III DATE: 03/09/17 REPORT STATUS : Draft TRANSCRIBED BY: MODL DATE: 03/09/17 NECK: Supple with no masses or thyroid enlargement. There is a bandage on the right neck from an IJ catheter. CARDIOVASCULAR: Regular rate and rhythm with no audible murmurs with no peripheral edema. LUNGS: Clear to auscultation bilaterally with normal respiratory effort. ABDOMEN: Soft, mildly tender to palpation diffusely, nondistended. No noted hepatosplenomegaly. SKIN: Warm and dry with a good skin turgor. No jaundice. PSYCH: He is alert and oriented, comprehends our conversation with normal judgment and affect. 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 IMAGING: His imaging and CT, imaging was personally reviewed with findings concerning for pulmonary metastasis as stated above. ASSESSMENT AND PLAN: 1. Renal cell carcinoma. Likely metastatic. I did discuss with him treatment options. I did discuss clinical trial possibilities including a trial looking at a doublet immunotherapy regimen, and I also did discuss standard of care treatment. We will plan for an MRI of his brain as an outpatient, then we will schedule a followup appointment with me upon discharge from the hospital. 2. Anemia, likely secondary to iron deficiency. We will check a ferritin. No transfusions are currently indicated. BMA/DOLLY Katey Luther III, M.D. / [id number] CC: Zach Herman Jr., MAX RUSSELL II
[~2017-03-04 06:28] MED LIST changes: +ZOFRAN4 PO
[2017-03-04 13:22] LABS: BE (BASE EXCESS) -6.1 MEQ/L (0 +/- 2.5); CARBOXYHEMOGLOBIN 0.6 % (0-3); DEVICE SM; HCO3 (ACTUAL BICARBONATE) 24.3 MEQ/L (23-27); INSTRUMENT SERIAL # 11843; METHEMOGLOBIN 0.5 % (0-3); O2 CONTENT 15.4 VOL% (18-24); OPERATOR ID 32214; PCO2 (CO2 TENSION) 78 MMHG (35-45); PO2 (O2 TENSION) 180 MMHG (79-93); SAMPLE Arterial; pH 7.11 (7.37-7.43)
[2017-03-04 13:46] LABS: BASOPHILS 0.1 %; BASOPHILS ABSOLUTE 0.01 10/3/uL (0.0-0.16); EOSINOPHILS 0.7 %; EOSINOPHILS ABSOLUTE 0.09 10/3/uL (0.0-0.53); HEMATOCRIT 30.2 % (40.0-51.0); HEMOGLOBIN 9.7 g/dL (13.6-17.8); IMMATURE GRANULOCYTES 2.3 %; LYMPHOCYTES 31.6 %; LYMPHOCYTES ABSOLUTE 4.11 10/3/uL (0.67-4.30); MEAN CORPUS HGB CONC 32.1 g/dL (32.0-36.0); MEAN CORPUSCULAR HEMOGLOB 25.8 pg (26.0-34.0); MEAN PLATELET VOLUME 9.3 fL (9.2-13.0); MONOCYTES 10.9 %; MONOCYTES ABSOLUTE 1.42 10/3/uL (0.21-1.20); NEUTROPHILS 54.4 %; NEUTROPHILS ABSOLUTE 7.09 10/3/uL (2.02-8.40); PLATELET COUNT 358 10/3/uL (150-400); RBC DISTRIBUTION WIDTH 16.4 % (12.0-16.0); RED CELL COUNT 3.76 10/6/uL (4.7-6.1)
[2017-03-04 13:47] LABS: MANUAL DIFF NO %; MEAN CORPUSCULAR VOLUME 80.3 fL (80-100)
[2017-03-04 13:56] LABS: CHLORIDE, SERUM 104 MMOL/L (96-112); CO2 (CARBON DIOXIDE) 23 MMOL/L (24-34); CREATININE 1.78 MG/DL (0.70-1.30); GFR AFRICAN AMERICAN 45 ML/MIN (>=60); GFR NON AFRICAN AMERICAN 39 ML/MIN (>=60); POTASSIUM, SERUM 4.3 MMOL/L (3.5-5.3); SODIUM, SERUM 137 MMOL/L (135-148)
[2017-03-04 13:58] LABS: BUN (BLOOD UREA NITROGEN) 14 MG/DL (6-23); CALCIUM, SERUM 7.8 MG/DL (8.5-10.4); GLUCOSE, SERUM 200 MG/DL (60-99)
[2017-03-04 14:16] LABS: BE (BASE EXCESS) -2.8 MEQ/L (0 +/- 2.5); BIPAP 16/5 cm.H2O; CARBOXYHEMOGLOBIN 0.4 % (0-3); HCO3 (ACTUAL BICARBONATE) 21.7 MEQ/L (23-27); INSTRUMENT SERIAL # 11843; METHEMOGLOBIN 0.4 % (0-3); O2 CONTENT 13.8 VOL% (18-24); OPERATOR ID 32214; PCO2 (CO2 TENSION) 37 MMHG (35-45); PO2 (O2 TENSION) 120 MMHG (79-93); SAMPLE Arterial; pH 7.39 (7.37-7.43)
[2017-03-05 04:04] LABS: HEMOGLOBIN 8.3 g/dL (13.6-17.8); MEAN CORPUS HGB CONC 33.1 g/dL (32.0-36.0); MEAN CORPUSCULAR HEMOGLOB 26.1 pg (26.0-34.0); MEAN CORPUSCULAR VOLUME 78.9 fL (80-100); MEAN PLATELET VOLUME 9.6 fL (9.2-13.0); PLATELET COUNT 290 10/3/uL (150-400); RBC DISTRIBUTION WIDTH 16.1 % (12.0-16.0); RED CELL COUNT 3.18 10/6/uL (4.7-6.1)
[2017-03-05 04:08] LABS: HEMATOCRIT 25.1 % (40.0-51.0); MANUAL DIFF YES %
[2017-03-05 04:39] LABS: BUN (BLOOD UREA NITROGEN) 17 MG/DL (6-23); CALCIUM, SERUM 7.2 MG/DL (8.5-10.4); CHLORIDE, SERUM 104 MMOL/L (96-112); CO2 (CARBON DIOXIDE) 19 MMOL/L (24-34); CREATININE 2.03 MG/DL (0.70-1.30); GFR AFRICAN AMERICAN 38 ML/MIN (>=60); GFR NON AFRICAN AMERICAN 33 ML/MIN (>=60); POTASSIUM, SERUM 4.6 MMOL/L (3.5-5.3); SODIUM, SERUM 138 MMOL/L (135-148)
[2017-03-05 04:40] LABS: GLUCOSE, SERUM 132 MG/DL (60-99)
[2017-03-05 05:23] LABS: LYMPHOCYTES 18 %; LYMPHOCYTES ABSOLUTE (CALC) 3.24 10/3/uL (0.67-4.30); MONOCYTES 5 %; NEUTROPHILS ABSOLUTE (CALC) 13.86 10/3/uL (2.02-8.40); SEGMENTED NEUTROPHIL (0) 77 %; TOTAL NUCLEATED CELLS 100
[2017-03-05 05:24] LABS: GIANT PLATELET FEW; POLYCHROMASIA 1+ (2-5/OIF) (0-1/OIF)
[2017-03-05 05:25] LABS: PLATELET ESTIMATE ADQ (ADEQUATE)
[2017-03-05 05:41] LABS: PHOSPHORUS, SERUM 2.1 MG/DL (2.5-4.5)
[2017-03-06 05:34] LABS: HEMATOCRIT 25.5 % (40.0-51.0); HEMOGLOBIN 8.5 g/dL (13.6-17.8); MEAN CORPUS HGB CONC 33.3 g/dL (32.0-36.0); MEAN CORPUSCULAR HEMOGLOB 26.5 pg (26.0-34.0); MEAN CORPUSCULAR VOLUME 79.4 fL (80-100); MEAN PLATELET VOLUME 10.4 fL (9.2-13.0); RBC DISTRIBUTION WIDTH 16.4 % (12.0-16.0); RED CELL COUNT 3.21 10/6/uL (4.7-6.1); WHITE BLOOD CELLS 16.4 10/3/uL (4.5-10.5)
[2017-03-06 05:44] LABS: PLATELET COUNT 177 10/3/uL (150-400)
[2017-03-06 05:45] LABS: MANUAL DIFF YES %
[2017-03-06 05:46] LABS: BUN (BLOOD UREA NITROGEN) 17 MG/DL (6-23); CALCIUM, SERUM 7.7 MG/DL (8.5-10.4); CHLORIDE, SERUM 102 MMOL/L (96-112); CO2 (CARBON DIOXIDE) 21 MMOL/L (24-34); CREATININE 1.66 MG/DL (0.70-1.30); GFR AFRICAN AMERICAN 49 ML/MIN (>=60); GFR NON AFRICAN AMERICAN 42 ML/MIN (>=60); GLUCOSE, SERUM 117 MG/DL (60-99); POTASSIUM, SERUM 4.3 MMOL/L (3.5-5.3); SODIUM, SERUM 133 MMOL/L (135-148)
[2017-03-06 07:13] LABS: HYPOCHROMIA 1+ (3-10/OIF) (0-2/OIF); LYMPHOCYTES 18 %; LYMPHOCYTES ABSOLUTE (CALC) 2.95 10/3/uL (0.67-4.30); MONOCYTES 8 %; MONOCYTES ABSOLUTE (CALC) 1.31 10/3/uL (0.21-1.20); NEUTROPHILS ABSOLUTE (CALC) 12.14 10/3/uL (2.02-8.40); PLATELET ESTIMATE ADQ (ADEQUATE); SEGMENTED NEUTROPHIL (0) 74 %; TOTAL NUCLEATED CELLS 100
[2017-03-06 12:59] LABS: HEMATOCRIT 25.2 % (40.0-51.0); HEMOGLOBIN 8.5 g/dL (13.6-17.8)
[2017-03-07 05:13] LABS: HEMATOCRIT 26.1 % (40.0-51.0); HEMOGLOBIN 8.6 g/dL (13.6-17.8); MEAN CORPUSCULAR HEMOGLOB 26.4 pg (26.0-34.0); MEAN CORPUSCULAR VOLUME 80.1 fL (80-100); MEAN PLATELET VOLUME 9.8 fL (9.2-13.0); PLATELET COUNT 229 10/3/uL (150-400); RBC DISTRIBUTION WIDTH 16.9 % (12.0-16.0); RED CELL COUNT 3.26 10/6/uL (4.7-6.1); WHITE BLOOD CELLS 11.9 10/3/uL (4.5-10.5)
[2017-03-07 05:14] LABS: MANUAL DIFF YES %
[2017-03-07 05:45] LABS: CHLORIDE, SERUM 99 MMOL/L (96-112); CO2 (CARBON DIOXIDE) 22 MMOL/L (24-34); CREATININE 1.35 MG/DL (0.70-1.30); GFR AFRICAN AMERICAN 63 ML/MIN (>=60); GFR NON AFRICAN AMERICAN 54 ML/MIN (>=60); PHOSPHORUS, SERUM 1.9 MG/DL (2.5-4.5); POTASSIUM, SERUM 4.2 MMOL/L (3.5-5.3); SODIUM, SERUM 133 MMOL/L (135-148)
[2017-03-07 05:49] LABS: BUN (BLOOD UREA NITROGEN) 13 MG/DL (6-23); GLUCOSE, SERUM 153 MG/DL (60-99)
[2017-03-07 06:05] LABS: EOSINOPHILS 1 %; EOSINOPHILS ABSOLUTE (CALC) 0.12 10/3/uL (0.0-0.53); IMMATURE GRANS ABSOLUTE (CALC) 0.12 10/3/uL (0.0-0.11); LYMPHOCYTES 12 %; LYMPHOCYTES ABSOLUTE (CALC) 1.43 10/3/uL (0.67-4.30); METAMYELOCYTES 1 %; MONOCYTES 10 %; MONOCYTES ABSOLUTE (CALC) 1.19 10/3/uL (0.21-1.20); NEUTROPHILS ABSOLUTE (CALC) 9.04 10/3/uL (2.02-8.40); PLATELET ESTIMATE ADQ (ADEQUATE); RBC MORPHOLOGY NORM (NORMAL); SEGMENTED NEUTROPHIL (0) 76 %; TOTAL NUCLEATED CELLS 100
[2017-03-08 10:05] LABS: HEMATOCRIT 26.6 % (40.0-51.0); HEMOGLOBIN 8.7 g/dL (13.6-17.8); MEAN CORPUS HGB CONC 32.7 g/dL (32.0-36.0); MEAN CORPUSCULAR HEMOGLOB 26.2 pg (26.0-34.0); MEAN CORPUSCULAR VOLUME 80.1 fL (80-100); MEAN PLATELET VOLUME 9.8 fL (9.2-13.0); RED CELL COUNT 3.32 10/6/uL (4.7-6.1); WHITE BLOOD CELLS 8.2 10/3/uL (4.5-10.5)
[2017-03-08 10:06] LABS: MANUAL DIFF YES %; PLATELET COUNT 298 10/3/uL (150-400)
[2017-03-08 10:24] LABS: BUN (BLOOD UREA NITROGEN) 12 MG/DL (6-23); CALCIUM, SERUM 8.3 MG/DL (8.5-10.4); CHLORIDE, SERUM 102 MMOL/L (96-112); CO2 (CARBON DIOXIDE) 25 MMOL/L (24-34); CREATININE 1.38 MG/DL (0.70-1.30); GFR AFRICAN AMERICAN 61 ML/MIN (>=60); GFR NON AFRICAN AMERICAN 53 ML/MIN (>=60); GLUCOSE, SERUM 165 MG/DL (60-99); POTASSIUM, SERUM 4.1 MMOL/L (3.5-5.3); SODIUM, SERUM 135 MMOL/L (135-148)
[2017-03-08 10:33] LABS: ANISOCYTOSIS 1+ (5-10/OIF) (0-5/OIF); EOSINOPHILS 2 %; EOSINOPHILS ABSOLUTE (CALC) 0.16 10/3/uL (0.0-0.53); HYPOCHROMIA 1+ (3-10/OIF) (0-2/OIF); LYMPHOCYTES 26 %; LYMPHOCYTES ABSOLUTE (CALC) 2.13 10/3/uL (0.67-4.30); MONOCYTES 9 %; MONOCYTES ABSOLUTE (CALC) 0.74 10/3/uL (0.21-1.20); NEUTROPHILS ABSOLUTE (CALC) 5.17 10/3/uL (2.02-8.40); PLATELET ESTIMATE ADQ (ADEQUATE); SEGMENTED NEUTROPHIL (0) 63 %; TOTAL NUCLEATED CELLS 100
[2017-03-09 04:15] LABS: BASOPHILS 0.1 %; BASOPHILS ABSOLUTE 0.01 10/3/uL (0.0-0.16); BUN (BLOOD UREA NITROGEN) 11 MG/DL (6-23); CALCIUM, SERUM 8.5 MG/DL (8.5-10.4); CHLORIDE, SERUM 100 MMOL/L (96-112); CO2 (CARBON DIOXIDE) 27 MMOL/L (24-34); CREATININE 1.29 MG/DL (0.70-1.30); EOSINOPHILS 2.9 %; EOSINOPHILS ABSOLUTE 0.22 10/3/uL (0.0-0.53); GFR AFRICAN AMERICAN 66 ML/MIN (>=60); GFR NON AFRICAN AMERICAN 57 ML/MIN (>=60); GLUCOSE, SERUM 153 MG/DL (60-99); HEMATOCRIT 25.7 % (40.0-51.0); HEMOGLOBIN 8.3 g/dL (13.6-17.8); IMMATURE GRANULOCYTES 3.6 %; IMMATURE GRANULOCYTES ABSOLUTE 0.27 10/3/uL (0.0-0.11); LYMPHOCYTES 31.1 %; LYMPHOCYTES ABSOLUTE 2.33 10/3/uL (0.67-4.30); MEAN CORPUS HGB CONC 32.3 g/dL (32.0-36.0); MEAN CORPUSCULAR HEMOGLOB 25.9 pg (26.0-34.0); MEAN CORPUSCULAR VOLUME 80.3 fL (80-100); MEAN PLATELET VOLUME 9.9 fL (9.2-13.0); MONOCYTES 16.6 %; MONOCYTES ABSOLUTE 1.24 10/3/uL (0.21-1.20); NEUTROPHILS 45.7 %; NEUTROPHILS ABSOLUTE 3.41 10/3/uL (2.02-8.40); PLATELET COUNT 286 10/3/uL (150-400); POTASSIUM, SERUM 3.8 MMOL/L (3.5-5.3); RBC DISTRIBUTION WIDTH 17.1 % (12.0-16.0); SODIUM, SERUM 136 MMOL/L (135-148); WHITE BLOOD CELLS 7.5 10/3/uL (4.5-10.5)
[2017-03-09 04:17] LABS: MANUAL DIFF NO %
[2017-03-09 19:22] LABS: % IRON SAT 9 % (20-50); FERRITIN 365 NG/ML (26-388); IRON BINDING CAPACITY 192 MCG/DL (250-450); IRON, SERUM 17 MCG/DL (35-150)
== END 2017-03-10 15:47 | disposition short-term general hospital (02) | DRG 657 ==
LOC: SDC/OF 06:28 → PACU 12:55 → CCU 17:02 → 4SO 03-07 22:48
PROVIDERS: Urology
PROC: 0GT20ZZ Resection of Left Adrenal Gland, Open Approach (ICD-10-PCS; 2017-03-04)
PROC: 30233N1 Transfusion of Nonautologous Red Blood Cells into Peripheral Vein, Percutaneous Approach (ICD-10-PCS; 2017-03-04)
PROC: 0TT10ZZ Resection of Left Kidney, Open Approach (ICD-10-PCS; principal; 2017-03-04 08:15)
DX: C64.2 Malignant neoplasm of left kidney, except renal pelvis (principal); I82.3 Embolism and thrombosis of renal vein; C77.1 Secondary and unspecified malignant neoplasm of intrathoracic lymph nodes; C78.00 Secondary malignant neoplasm of unspecified lung; D62 Acute posthemorrhagic anemia; R31.0 Gross hematuria; Z51.5 Encounter for palliative care; E11.40 Type 2 diabetes mellitus with diabetic neuropathy, unspecified; I10 Essential (primary) hypertension; E78.5 Hyperlipidemia, unspecified; Z87.891 Personal history of nicotine dependence; Z79.82 Long term (current) use of aspirin; Z79.891 Long term (current) use of opiate analgesic; Z79.84 Long term (current) use of oral hypoglycemic drugs; E66.3 Overweight; D50.9 Iron deficiency anemia, unspecified; G47.33 Obstructive sleep apnea (adult) (pediatric); E66.9 Obesity, unspecified; Z68.39 Body mass index [BMI] 39.0-39.9, adult
CPT/HCPCS: 36415; 36600; 71010; 80048; 82330; 82728; 82803; 82805; 82947; 82962; 83540; 83550; 83615; 84100; 84132; 84295; 85014; 85018; 85025; 86850; 86900; 86901; 86920; 87641; 88307; 94640; 94660; 97162-GP; 97530-GP; A9270-GY; C1751; C1769; G8978-CL-GP; G8979-CK-GP; J0690; J0694; J2250; J2370; J2405; J2710; J3010; P9016; P9045

== ENCOUNTER 2017-05-04 16:57 | Inpatient (IN) | payer MEDICARE, OTHER ==
--- NOTE | ~2017-05-04 | DS ---
Discharge Summary [facility] [address] [place]. [address] NAME: NIC ESCOBAR : 48 STATUS : DIS IN PAT#: [id number] AGE: 66 ADM/REG DATE : 05/04/17 MR#: [id number] REPORT SERV DATE: 05/09/17 DICTATED BY: JAE REGAN DATE: 05/08/17 REPORT STATUS : Draft TRANSCRIBED BY: MODL DATE: 05/08/17 ADMISSION DATE: 05/04/2017 DISCHARGE DATE: 05/08/2017 DISCHARGE DIAGNOSES: 1. Possible CVA. 2. Positive bubble study. 3. C. difficile positive. 4. Metastatic renal cell carcinoma. 5. Hypertension. 6. Iron-deficiency anemia, stable. 7. Debility. CONSULTATIONS: 1. Neurology, Dr. Ceron. 2. Cardiology, Dr. Hart. IMAGIN. CT abdomen and pelvis, 05/04/2017, impression: Widespread metastatic involvement of the lungs with large amount of hilar adenopathy. 2. CT brain 05/05/2017, impression: Recommend study for augmented with MRI. Suspect that some deep white matter changing particularly on the left may represent acute infarction. 3. Chest x-ray, 05/05/2017, impression: Multiple bilateral nodules consistent with metastatic neoplasm disease. 4. CTA of brain, 05/05/2017, impression: CT of the neck demonstrates category 1 changes in the carotid. No significant luminal stenosis. Vertebral and subclavians also normal. CT of the head: Intracranial portion demonstrates no evidence of any significant filling deficit in the little traverse of Alarcon structures to suggest embolus. Deep white matter changes are identified, again difficult to exclude acute deep left frontal white matter infarction. 5. MRI of the brain on 05/05/2017, impression: No evidence of acute infarct patient. Deep white matter changes are correlated with the CT scans. Mgib-ke-xgamxnwc amount bilateral, probably the result of a small vessel ischemic disease in the past. 6. Echocardiogram: Normal left ventricular systolic function with an estimated ejection fraction 55 to 60%. Normal right ventricular chamber size and systolic function. No significant valvular regurgitation or stenosis. Aneurysmal interatrial septum. Bubble study positive. HOSPITAL STAY: Please refer to history and physical dictated by Dr. Philip White on 05/04/2017, as well as consultation notes for complete admission information. This patient is a 66-year-old male, who presented in [facility] Emergency Room with complaints of nausea, anorexia, weight loss, diarrhea, and elevated LFTs. The patient does present with a history of metastatic renal cell carcinoma, status post left nephrectomy and recent double immunotherapy as well as diabetes, hypertension, hyperlipidemia, and morbid Discharge Summary [place] [address] [place]. [address] NAME: NIC ESCOBAR : 48 STATUS : DIS IN PAT#: [id number] AGE: 66 ADM/REG DATE : 05/04/17 MR#: [id number] REPORT SERV DATE: 05/09/17 DICTATED BY: JAE REGAN DATE: 05/08/17 REPORT STATUS : Draft TRANSCRIBED BY: DOLLY DATE: 05/08/17 obesity. The patient's last chemotherapy was on 04/13/2017. At that time, he received ipilimumab and nivolumab. 1. Possible CVA, imaging obtained which is noted above. Neurology was consulted. No acute changes noted. Possible old changes noted in white matter. Neurology did sign off. 2. Positive bubble study. Again as noted, an echocardiogram. [facility] was [facility]. Per [facility], no treatment noted. 3. C. difficile positive. The patient did have complaints of diarrhea. Stool was tested positive. The patient was started on vancomycin, and the patient will be discharged home with vancomycin tapering dose. The patient and were instructed regarding medication, both stated understanding. 4. Metastatic renal cell carcinoma. The patient is followed by [facility]. Followup appointment made with Dr. Pete for approximately one week. The patient and are aware of appointment. 5. Hypertension. The patient's blood pressure has remained stable. At this time blood pressure is 130/73. 6. Iron-deficiency anemia. The patient did receive IV iron. At this time, hemoglobin is 8.2, hematocrit 27.6, this will be followed per Dr. Pete's office. 7. Debility. PT evaluation was completed. Per recommendation, patient requested [facility]. A rn field case manager was working with the patient. The patient did deny [facility] and [facility] was offered, the patient did decline. Home health and physical therapy will be arranged as well as any needs upon discharge. Also transportation was offered for home, patient and did decline. Dr. Pete was in agreement with patient's discharge, patient's followup has been arranged for one week. Prescription for vancomycin tapering dose as well as MD Huynh and viscous lidocaine were provided for patient upon discharge. The patient denied needing pain prescription at this time. DISCHARGE MEDICATIONS: 1. Elavil 50 mg one p.o. at bedtime. 2. Aspirin 81 mg one p.o. at bedtime. 3. Cymbalta 30 mg one p.o. at bedtime. 4. Lofibra 160 mg one p.o. at bedtime. 5. Bystolic 10 mg one p.o. at bedtime. 6. Protonix 40 mg one p.o. at bedtime. 7. Xyzal 5 mg one p.o. at bedtime. 8. Zocor 40 mg one p.o. at bedtime. 9. Klonopin 0.5 and 0.25 p.o. twice daily. 10.Hydrocodone 10/325 one p.o. every 6 hours p.r.n. for pain. 11.Nitroglycerin 0.4 mg sublingual p.r.n. for chest pain. 12.Zofran 4 mg one p.o. every 6 hours p.r.n. for nausea. 13.Janumet XR 50/500 mg tablet one p.o. twice daily. This discharge took greater than 30 minutes. DICTATED BY: Jae Regan NP Discharge Summary [address] [address] NAME: NIC ESCOBAR : 48 STATUS : DIS IN PAT#: [id number] AGE: 66 ADM/REG DATE : 05/04/17 MR#: [id number] REPORT SERV DATE: 05/09/17 DICTATED BY: JAE REGAN DATE: 05/08/17 REPORT STATUS : Draft TRANSCRIBED BY: DOLLY DATE: 05/08/17 AIDAN/DOLLY Jae Regan NP / [id number] CC: Zach Melendez
--- NOTE | ~2017-05-04 | CN ---
Consultation Report [facility] [address] [facility] [place]. [address] NAME: NIC WEISS : 48 STATUS : ADM IN PAT#: [id number] AGE: 66 ADM/REG DATE : 05/04/17 MR#: [id number] REPORT SERV DATE: 05/07/17 DICTATED BY: JOSE ENRIQUE HART DATE: 05/07/17 REPORT STATUS : Draft TRANSCRIBED BY: MODL DATE: 05/07/17 CONSULTATION DATE OF CONSULTATION: Nic Weiss is a 66-year-old, who is referred for positive bubble study. CVD PHYSICIAN: Philip Molina MD. HISTORY OF PRESENT ILLNESS: Mr. Weiss has a long history most recently with renal cell carcinoma with metastatic disease. DICTATION ENDS HERE CLEMENTE/DOLLY Jose Enrique Hart M.D. / [id number] CC: Zach Melendez MAX RUSSELL II
--- NOTE | ~2017-05-04 | HP ---
History And Physical [place] [address] [place]. [address] NAME: NIC ESCOBAR : 48 STATUS : ADM IN [facility]#: [id number] AGE: 66 ADM/REG DATE : 05/04/17 MR#: [id number] REPORT SERV DATE: 05/04/17 DICTATED BY: ISATU CALABRESEJS CLANCY DATE: 05/04/17 REPORT STATUS : Draft TRANSCRIBED BY: MODL DATE: 05/04/17 DATE OF ADMISSION: 05/04/2017 PRIMARY ONCOLOGIST: Dr. Ram. CHIEF COMPLAINT: Nausea, anorexia, weight loss, diarrhea, and elevated LFTs. HISTORY OF PRESENT ILLNESS: The patient is a 66-year-old male with history of metastatic renal cell carcinoma, status post left nephrectomy and recent initiation of double immunotherapy as well as diabetes, hypertension, hyperlipidemia, and morbid obesity, who presented to [facility] from Dr. Ram's office today due to the above-mentioned symptoms. He states he has been on ipilimumab and nivolumab with a clinical trial since 04/13/2017. Since then, he has noted progressive weight loss of about 100 pounds. The patient and his family said he was about 350 pounds when he started chemo and was diagnosed and now last time, he was weighed about 260. He has had worsening appetite, anorexia, sore throat, nausea, and now recently started having diarrhea. Family also notes he has become progressively weaker, now barely able to stand and ambulate. He is extremely fatigued. He denies any fevers, chills, or cough. Denies any melena or hematochezia. He has some occasional lower abdominal pain but denies any currently, and at Dr. Ram's office, he was noted to have elevated LFTs with AST of 216, alk phos 347, and LDH of 2389. Dr. Ram is concerned for hepatitis secondary to his immunotherapy. REVIEW OF SYSTEMS: Otherwise, 12-point review of systems negative except for HPI. PAST MEDICAL HISTORY: 1. Metastatic renal cell carcinoma diagnosed in February, status post left nephrectomy on 03/04/2017. Currently on clinical trial 136 with ipilimumab and nivolumab started 04/13/2017. 2. Left renal vein thrombosis, status post renal vein resection. 3. Hypertension. 4. Hyperlipidemia. 5. Diabetes mellitus type 2 with neuropathy. 6. Morbid obesity. 7. Obstructive sleep apnea, on CPAP. SURGICAL HISTORY: Hip replacement, four back surgeries, neck surgery, and a hip surgery. SOCIAL HISTORY: The patient quit smoking 20 years ago. Denies any alcohol, tobacco, or drug use. Currently, living at home with his family. FAMILY HISTORY: Mother of a stroke. Father of cancer. MEDICATIONS: Amitriptyline, aspirin, Klonopin, Colace, duloxetine, fenofibrate, Bureau, nebivolol, polyethylene glycol, Protonix, simvastatin, and sitagliptin. History And Physical [address] [address] NAME: NIC ESCOBAR : 48 STATUS : ADM IN [facility]#: [id number] AGE: 66 ADM/REG DATE : 05/04/17 MR#: [id number] REPORT SERV DATE: 05/04/17 DICTATED BY: JS LUNSFORD II DATE: 05/04/17 REPORT STATUS : Draft TRANSCRIBED BY: MODAlvin DATE: 05/04/17 PHYSICAL EXAMINATION: VITAL SIGNS: Blood pressure 122/59, temperature 97.6, heart rate 91, respirations 33, oxygen sat 94% on room air. GENERAL: The patient is morbidly obese male, alert and oriented x3, in no acute distress. NECK: Supple. Nontender. No lymphadenopathy or thyromegaly. HEENT: Moist mucous membranes. Pupils are equal, round, reactive to light. Conjunctivae clear. No obvious oral lesions. RESPIRATORY: Lungs are clear to auscultation bilaterally. No wheezes, rhonchi, or rales. Nonlabored breathing. CARDIOVASCULAR: Regular rate and rhythm. No murmurs, rubs, or gallops. ABDOMEN: Soft, nontender, nondistended. Normoactive bowel sounds. EXTREMITIES: No cyanosis, clubbing, or edema. SKIN: Clammy to the touch, but no lesions, rashes, or wounds. 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 LABORATORY DATA: From Dr. Ram's office today. White blood cell count 12.6, hemoglobin 9.8, platelets 478. Glucose 119, sodium 128, creatinine 1.2, BUN 14, potassium 5.4, ALT 47, AST 216, alkaline phosphatase 347, total protein 8.4, albumin 3.6, calcium 9.4, total bilirubin 2.8, LDH 2389. ASSESSMENT AND PLAN: The patient is a 66-year-old male with. 1. Weakness, fatigue, nausea, and anorexia, which all started after his clinical trial of double immunotherapy. At this point, we will continue investigating his underlying illness and provide supportive care with IV fluids, antiemetics. 2. Elevated LFTs concerning for possible hepatitis from immunotherapy. We will start him on prednisone 1 mcg/kg daily and have a CT scan with contrast done. 3. Sore throat with odynophagia, certainly possible he has some immune mediated esophagitis from his chemotherapy, I will have him on MD Huynh mouthwash. 4. Metastatic renal cell carcinoma. I will defer to Dr. Ram. 5. Anemia, transfuse p.r.n. 6. Diarrhea likely secondary to immunotherapy, but we will check a C. diff at least. 7. Hypertension and diabetes. Continue home medicines and have a sliding scale insulin. 8. The patient is full code. STACIA/DOLLY Js Lunsford II, MD / [id number] CC: MD Keyshawn Parham II
--- NOTE | ~2017-05-04 | CN ---
Consultation Report [facility] [address] [place]. [address] NAME: NIC WEISS : 48 STATUS : ADM IN PAT#: [id number] AGE: 66 ADM/REG DATE : 05/04/17 MR#: [id number] REPORT SERV DATE: 05/07/17 DICTATED BY: JOSE ENRIQUE HART DATE: 05/07/17 REPORT STATUS : Draft TRANSCRIBED BY: DOLLY DATE: 05/07/17 CONSULTATION DATE OF CONSULTATION: CVD PHYISICIAN: Philip Molina M.D. REASON FOR CONSULTATION: Mr. Nic Weiss is a 66-year-old male, who is referred for positive bubble study with possible history of TIA. HISTORY OF PRESENT ILLNESS: Mr. Nic Weiss has a long complicated history of both back and spine surgery as well as renal cell carcinoma, currently on chemotherapy for metastatic disease. He has not had a previous cardiac history. He came in with failure to thrive and possible sepsis. He had an event with right-sided facial weakness and underwent a bubble study which was positive. REVIEW OF SYSTEMS: Not obtainable. PAST MEDICAL HISTORY: 1. Morbid obesity with obstructive sleep apnea. 2. Diabetes mellitus type 2. 3. Renal cell carcinoma with metastatic disease. 4. DNR status. 5. History of hypertension. 6. History of CVA in the past. SOCIAL HISTORY: He does not drink or smoke at this time. He is immobile with poor nutrition. FAMILY HISTORY: Negative for early heart disease. PHYSICAL EXAMINATION: VITAL SIGNS: Blood pressure is 111/55, pulse is 83, and he is afebrile. GENERAL: Resting comfortably at this time. Does respond to commands. LUNGS: Respiration is normal with collaterals breath sounds. HEART: No murmurs, rubs, or gallops are heard. ABDOMEN: Soft. EXTREMITIES: Demonstrate no edema. They are warm. No petechiae are noted. LABORATORY EVALUATION: Echocardiogram shows a structurally normal heart with an aneurysmal interatrial septum with positive bubble study. ASSESSMENT: At this time, I would anticoagulate in the routine way. Intervention for the Consultation Report [facility] [id number] [place]. [address] NAME: NIC WEISS : 49 STATUS : ADM IN PAT#: [id number] AGE: 66 ADM/REG DATE : 05/04/17 MR#: [id number] REPORT SERV DATE: 05/07/17 DICTATED BY: JOSE ENRIQUE HART DATE: 05/07/17 REPORT STATUS : Draft TRANSCRIBED BY: DOLLY DATE: 05/07/17 ASD I do not believe would be indicated at this time. We will defer anticoagulation to Neurology. I discussed this with Dr. Kwan. CLEMENTE/DOLLY Jose Enrique Hart M.D. / [id number] CC: aZch Melendez MAX RUSSELL
--- NOTE | ~2017-05-04 | CN ---
Consultation Report [facility] [address] [place]. [address] NAME: NIC ESCOBAR : 48 STATUS : ADM IN [facility]#: [id number] AGE: 66 ADM/REG DATE : 05/04/17 MR#: [id number] REPORT SERV DATE: 05/05/17 DICTATED BY: ELYSE CERON DATE: 05/05/17 REPORT STATUS : Draft TRANSCRIBED BY: DOLLY DATE: 05/05/17 URGENT NEUROLOGICAL CONSULTATION DATE OF CONSULTATION: 05/05/2017 REQUESTING PHYSICIAN: Hospitalist team. REASON FOR THE CONSULTATION: Acute onset of mental status changes, dysarthria, right facial weakness, rule out stroke. HISTORY OF PRESENT ILLNESS: This is a 66-year-old white male, patient of Dr. Ram of Oncology, with a history of recently diagnosed renal cell carcinoma, status post nephrectomy in January of this year, who was noted by nursing staff to have dysarthric speech and right facial weakness. The patient was difficult to arouse. 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 The patient last known well was 2 a.m. Rapid response was called around [address] scan of the head showed no acute or large infarct; however, there was small area of hypodensity suggestive of possible subacute to acute changes in the left MCA territory. PAST MEDICAL HISTORY: Renal cell carcinoma, status post nephrectomy in 01/2017 with metastasis to the lungs. The patient has been on new chemotherapy 136 ipilimumab and nivolumab started on 04/03/2017. Has a history of left renal vein thrombosis, history of hypertension, hyperlipidemia, diabetes mellitus types 2, morbid obesity, recent weight changes of 100 pounds, obstructive sleep apnea, and recently not on CPAP. FAMILY HISTORY: Significant for history of cancer in the patient's father. The patient's mother of CA at undetermined age. ALLERGIES: NO KNOWN ALLERGIES. PAST SURGICAL HISTORY: Includes hip replacement, four lumbosacral spine surgeries, and neck surgery. SOCIAL HISTORY: The patient stopped smoking 20 years ago. There is no history of alcohol or drug use. The patient lives with his . Has seven children. MEDICATIONS: Prior to admission included Klonopin, aspirin, amitriptyline, [place], Protonix, simvastatin, Colace, and sitagliptin. PHYSICAL EXAMINATION: VITAL SIGNS: Show blood pressure of 127/60, pulse was 82, respirations 14, oxygen saturation on 2 L 96%, and temperature 97.9. HEAD AND NECK: Showed him to be normocephalic. There was no evidence of trauma. Auscultation of the neck no evidence of bruits. Eye exam, sclerae were not icteric. Conjunctiva was pink. ENT exam, tongue was midline. No atrophy or fibrillations were Consultation Report [address] [place]. [address] NAME: NIC ESCOBAR : 48 STATUS : ADM IN PAT#: [id number] AGE: 66 ADM/REG DATE : 05/04/17 MR#: [id number] REPORT SERV DATE: 05/05/17 DICTATED BY: ELYSE CERON DATE: 05/05/17 REPORT STATUS : Draft TRANSCRIBED BY: DOLLY DATE: 05/05/17 noted. The patient was somnolent breathing through his mouth having episodes of obstructive sleep apnea. Appeared to answer appropriately when aroused, however, fell asleep readily. CHEST: Symmetrical. LUNGS: Appeared to have decreased breath sounds at the bases. ABDOMEN: Soft, nontender. EXTREMITIES: Show no clubbing or cyanosis. There was no peripheral edema. Peripheral pulses were decreased, but present throughout. SKIN: Appeared cold and clammy. No petechiae, ecchymosis, hemorrhages, or other lesions noted. The patient appeared pale. NEUROLOGICAL EXAMINATION: The patient was somnolent, but arousable. Fell asleep readily, was oriented to self and hospital, partially oriented to time. Speech appeared dysarthric. The patient was difficult to arouse to test distant and recent memory in detail. CRANIAL NERVE EXAMINATION 2 THROUGH 12: The patient appeared to track with his eyes appropriately. However, visual ley on confrontation were difficult to test in view of his somnolence. Pupils were small, 2.5 mm, reactive to light. Extraocular movements were full. There was no nystagmus. No limitation of upward or downward gaze. On testing, facial weakness was noted on the right, appeared to be of peripheral origin. The patient eye closure was decreased on the right. The rest of cranial nerve examination appeared within normal range. Gag reflex was present difficult to evaluate grade. No atrophy or fibrillations were noted on examination of his tongue. MOTOR EXAM: The patient was squeezing both of his arms, however, would not sustain his arms. When testing proximal strength was moving lower extremity without any difficulty. Deep tendon reflexes were absent in lower extremities, trace in lower extremities. SENSORY EXAM: Appeared to show decreased sensation to vibration distally. The patient had difficulty with position sense in distal legs. LABORATORY STUDIES: CBC with differential WBC count 9, hemoglobin 9.4, hematocrit 31.2. MCV 72.9, platelet count 370,000. Normal differential except immature granulocytes 0.18, positive microcytes, and . Hypochromasia and polychromasia. Comprehensive metabolic showed procalcitonin of 1.16, sodium 126, potassium 5.3, chloride 95, carbon dioxide 22, BUN 16, creatinine 1.2, GFR 62, calcium 9.5, glucose 151, total protein 8.1, albumin 2.2. Alkaline phosphatase increased to 276, ALT 30, AST 237, LDH 875. TSH 0.603. The patient was positive for C difficile in his stool. CT scan of the head as described above. CTA of the head and neck showed category 1 change in the carotids. No significant luminal stenosis. IMPRESSION: 1. Probable transient ischemic episode. 2. Could not rule out early sepsis. 3. Clostridium difficile colitis. 4. Recent nephrectomy for newly diagnosed renal cell carcinoma with metastasis to the lungs. 5. Rule out brain metastases. Consultation Report [address] [address] NAME: NIC ESCOBAR : 48 STATUS : ADM IN [facility]#: [id number] AGE: 66 ADM/REG DATE : 05/04/17 MR#: [id number] REPORT SERV DATE: 05/05/17 DICTATED BY: ELYSE CERON DATE: 05/05/17 REPORT STATUS : Draft TRANSCRIBED BY: MODAlvin DATE: 05/05/17 6. Obstructive sleep apnea. The patient has not been compliant with CPAP. 7. Weight loss of 100 pounds. PLAN: 1. The patient's CPAP may not be effective in view of the above-mentioned 100-pound weight loss, would recommend to do a CPAP retitration study. 2. MRI of the brain to rule out metastases. 3. EEG if needed to rule out seizures and cephalopathy. The patient's case was discussed with Dr. Ram. In view of the patient's GI involvement and colitis, we would use aspirin sparingly, no anticoagulation needed if aggressive treatment is planned for this patient. I would recommend to follow TIA or CVA orders which includes echocardiogram and all the other modalities. This was discussed with the patient's . After the CTA scan was obtained and returned to discuss the results with the patient's and the primary team of hospitalist Dr. Kwan, who will follow up on the patient's progress and need for other additional diagnostic studies. This is a critical care start Neurology consult. TOTAL TIME: 55 minutes. SHMUEL/DOLLY Elyse Ceron MD / [id number] CC: [facility]endezRUSSELLVILLE [facility]
[2017-05-04] MEDS ORDERED: AMIT50 PO (17:57)
[2017-05-04] MEDS ORDERED: KLONO5 PO (17:57)
[2017-05-04] MEDS ORDERED: ASAB PO (17:57)
[2017-05-04] MEDS ORDERED: NITROSTAT0.4 MG SL (17:58)
[2017-05-04] MEDS ORDERED: NORCO1 TAB PO (17:58)
[2017-05-04] MEDS ORDERED: LOFIB160 PO (17:58)
[2017-05-04] MEDS ORDERED: BYSTOLIC10 MG PO (17:58)
[2017-05-04] MEDS ORDERED: ZOCOR40 PO (17:59)
[2017-05-04] MEDS ORDERED: JANUMET XR 50-1 EACH PO (17:59)
[2017-05-04] MEDS ORDERED: ZOFRAN4 PO (17:59)
[2017-05-04] MEDS ORDERED: XYZAL5 MG PO (18:00)
[2017-05-04] MEDS ORDERED: CYMBALTA30 PO (18:00)
[2017-05-04] MEDS ORDERED: PROTONIX PO (18:03)
[2017-05-05 05:25] LABS: HEMOGLOBIN 9.4 g/dL (13.6-17.8); MEAN PLATELET VOLUME 8.8 fL (9.2-13.0); PLATELET COUNT 370 10/3/uL (150-400); RBC DISTRIBUTION WIDTH 19.4 % (12.0-16.0)
[2017-05-05 05:28] LABS: HEMATOCRIT 31.2 % (40.0-51.0); MANUAL DIFF YES %; MEAN CORPUS HGB CONC 30.1 g/dL (32.0-36.0); MEAN CORPUSCULAR VOLUME 72.9 fL (80-100); RED CELL COUNT 4.28 10/6/uL (4.7-6.1)
[2017-05-05 05:44] LABS: A/G RATIO 0.4 (0.7-1.9); ALBUMIN 2.2 G/DL (3.5-5.0); ALKALINE PHOSPHATASE 276 U/L (45-117); BUN (BLOOD UREA NITROGEN) 16 MG/DL (6-23); CALCIUM, SERUM 9.4 MG/DL (8.5-10.4); CHLORIDE, SERUM 95 MMOL/L (96-112); CO2 (CARBON DIOXIDE) 22 MMOL/L (24-34); GFR AFRICAN AMERICAN 72 ML/MIN (>=60); GFR NON AFRICAN AMERICAN 62 ML/MIN (>=60); GLOBULIN 5.9 G/DL (2.5-4.1); GLUCOSE, SERUM 151 MG/DL (60-99); POTASSIUM, SERUM 5.3 MMOL/L (3.5-5.3); SGOT(AST) 237 U/L (5-40); SGPT(ALT) 30 U/L (5-65); SODIUM, SERUM 126 MMOL/L (135-148); TOTAL BILIRUBIN 2.3 MG/DL (0-1.2); TOTAL PROTEIN 8.1 G/DL (6.0-8.5); ULTRASENSITIVE TSH 0.603 MCIU/ML (0.358-3.740)
[2017-05-05 05:45] LABS: BAND NEUTROPHILS 1 %; IMMATURE GRANS ABSOLUTE (CALC) 0.18 10/3/uL (0.0-0.11); LYMPHOCYTES 13 %; LYMPHOCYTES ABSOLUTE (CALC) 1.17 10/3/uL (0.67-4.30); METAMYELOCYTES 2 %; MONOCYTES 3 %; MONOCYTES ABSOLUTE (CALC) 0.27 10/3/uL (0.21-1.20); NEUTROPHILS ABSOLUTE (CALC) 7.38 10/3/uL (2.02-8.40); PLATELET ESTIMATE ADQ (ADEQUATE); SEGMENTED NEUTROPHIL (0) 81 %; TOTAL NUCLEATED CELLS 100
[2017-05-05 05:46] LABS: ANISOCYTOSIS 1+ (5-10/OIF) (0-5/OIF); POLYCHROMASIA 1+ (2-5/OIF) (0-1/OIF); TEARDROP SHAPED RBCS OCC (0-2/OIF)
[2017-05-05 06:07] LABS: PROCALCITONIN 1.16 ng/mL (<0.5)
[2017-05-05 06:16] LABS: HYPERSEGMENTED NEUT MANY (>15%) % (0-5)
[2017-05-05 07:33] LABS: TROPONIN I <0.02 NG/ML (<0.05)
[2017-05-05 07:34] LABS: CK-MB 0.8 NG/ML; CPK 61 U/L (0-200)
[2017-05-05 11:04] LABS: ASCORBIC ACID (UR NOT ORDER) NEG (NEG); BILIRUBIN, URINE NEGATIVE (NEG); KETONE, URINE NEGATIVE (NEG); LEUKOCYTE ESTERASE(NOT OR NEG (NEG); WBC (NOT ORDERED) (RFLEX) 1 (0-5)
[2017-05-06 04:14] LABS: HEMATOCRIT 28.6 % (40.0-51.0); HEMOGLOBIN 8.7 g/dL (13.6-17.8); MANUAL DIFF YES %; MEAN CORPUS HGB CONC 30.4 g/dL (32.0-36.0); MEAN CORPUSCULAR HEMOGLOB 22.2 pg (26.0-34.0); NUCLEATED RED BLOOD CELLS 0.2 /100WBC (0-0); PLATELET COUNT 381 10/3/uL (150-400); RBC DISTRIBUTION WIDTH 19.8 % (12.0-16.0); RED CELL COUNT 3.92 10/6/uL (4.7-6.1); WHITE BLOOD CELLS 12.4 10/3/uL (4.5-10.5)
[2017-05-06 04:20] LABS: ALBUMIN 2.1 G/DL (3.5-5.0); CALCIUM, SERUM 8.9 MG/DL (8.5-10.4); CHLORIDE, SERUM 100 MMOL/L (96-112); CO2 (CARBON DIOXIDE) 26 MMOL/L (24-34); CREATININE 1.16 MG/DL (0.70-1.30); GFR AFRICAN AMERICAN 75 ML/MIN (>=60); GFR NON AFRICAN AMERICAN 65 ML/MIN (>=60); GLUCOSE, SERUM 151 MG/DL (60-99); POTASSIUM, SERUM 4.9 MMOL/L (3.5-5.3); SODIUM, SERUM 131 MMOL/L (135-148)
[2017-05-06 04:21] LABS: BUN (BLOOD UREA NITROGEN) 21 MG/DL (6-23); PHOSPHORUS, SERUM 2.7 MG/DL (2.5-4.5)
[2017-05-06 04:42] LABS: ANISOCYTOSIS 1+ (5-10/OIF) (0-5/OIF); BAND NEUTROPHILS 1 %; EOSINOPHILS 1 %; EOSINOPHILS ABSOLUTE (CALC) 0.12 10/3/uL (0.0-0.53); HYPOCHROMIA 1+ (3-10/OIF) (0-2/OIF); IMMATURE GRANS ABSOLUTE (CALC) 0.25 10/3/uL (0.0-0.11); LYMPHOCYTES 8 %; LYMPHOCYTES ABSOLUTE (CALC) 0.99 10/3/uL (0.67-4.30); METAMYELOCYTES 2 %; MICROCYTES 1+ (5-10/OIF) (0-5/OIF); MONOCYTES 1 %; MONOCYTES ABSOLUTE (CALC) 0.12 10/3/uL (0.21-1.20); NEUTROPHILS ABSOLUTE (CALC) 10.91 10/3/uL (2.02-8.40); PLATELET ESTIMATE ADQ (ADEQUATE); POLYCHROMASIA 1+ (2-5/OIF) (0-1/OIF); SEGMENTED NEUTROPHIL (0) 87 %; TOTAL NUCLEATED CELLS 100
[2017-05-06 10:12] LABS: DIRECT BILIRUBIN 1.6 MG/DL (0.0-0.4); INDIRECT BILIRUBIN(NOT ORDER) 0.7 MG/DL (0.1-0.9); SGOT(AST) 230 U/L (5-40); SGPT(ALT) 34 U/L (5-65); TOTAL BILIRUBIN 2.3 MG/DL (0-1.2); TOTAL PROTEIN 7.5 G/DL (6.0-8.5)
[2017-05-06 10:13] LABS: ALKALINE PHOSPHATASE 335 U/L (45-117)
[2017-05-07 04:33] LABS: BASOPHILS 0 %; EOSINOPHILS ABSOLUTE 0.08 10/3/uL (0.0-0.53); HEMATOCRIT 27.1 % (40.0-51.0); HEMOGLOBIN 8.1 g/dL (13.6-17.8); IMMATURE GRANULOCYTES 1.7 %; IMMATURE GRANULOCYTES ABSOLUTE 0.13 10/3/uL (0.0-0.11); LYMPHOCYTES 30.8 %; LYMPHOCYTES ABSOLUTE 2.37 10/3/uL (0.67-4.30); MEAN CORPUS HGB CONC 29.9 g/dL (32.0-36.0); MEAN CORPUSCULAR HEMOGLOB 22.1 pg (26.0-34.0); MEAN PLATELET VOLUME 8.8 fL (9.2-13.0); MONOCYTES 11.2 %; MONOCYTES ABSOLUTE 0.86 10/3/uL (0.21-1.20); NEUTROPHILS 55.3 %; NEUTROPHILS ABSOLUTE 4.26 10/3/uL (2.02-8.40); NUCLEATED RED BLOOD CELLS 0.5 /100WBC (0-0); PLATELET COUNT 337 10/3/uL (150-400); RBC DISTRIBUTION WIDTH 20.1 % (12.0-16.0); RED CELL COUNT 3.66 10/6/uL (4.7-6.1); WHITE BLOOD CELLS 7.7 10/3/uL (4.5-10.5)
[2017-05-07 04:36] LABS: MANUAL DIFF NO %
[2017-05-07 04:58] LABS: ALBUMIN 1.9 G/DL (3.5-5.0); BUN (BLOOD UREA NITROGEN) 21 MG/DL (6-23); CALCIUM, SERUM 8.5 MG/DL (8.5-10.4); CHLORIDE, SERUM 101 MMOL/L (96-112); CO2 (CARBON DIOXIDE) 23 MMOL/L (24-34); CREATININE 1.04 MG/DL (0.70-1.30); GFR AFRICAN AMERICAN 86 ML/MIN (>=60); GFR NON AFRICAN AMERICAN 74 ML/MIN (>=60); POTASSIUM, SERUM 4.8 MMOL/L (3.5-5.3); SGOT(AST) 362 U/L (5-40); SGPT(ALT) 67 U/L (5-65); SODIUM, SERUM 132 MMOL/L (135-148); TOTAL BILIRUBIN 2.1 MG/DL (0-1.2); TOTAL PROTEIN 6.6 G/DL (6.0-8.5)
[2017-05-07 05:04] LABS: A/G RATIO 0.4 (0.7-1.9); ALKALINE PHOSPHATASE 527 U/L (45-117); GLOBULIN 4.7 G/DL (2.5-4.1); GLUCOSE, SERUM 112 MG/DL (60-99); PHOSPHORUS, SERUM 1.1 MG/DL (2.5-4.5)
[2017-05-07 05:17] LABS: HYPOCHROMIA 1+ (3-10/OIF) (0-2/OIF); PLATELET ESTIMATE ADQ (ADEQUATE); POLYCHROMASIA 1+ (2-5/OIF) (0-1/OIF)
[2017-05-08 04:55] LABS: BASOPHILS 0.1 %; BASOPHILS ABSOLUTE 0.01 10/3/uL (0.0-0.16); EOSINOPHILS 1.1 %; HEMATOCRIT 27.6 % (40.0-51.0); HEMOGLOBIN 8.2 g/dL (13.6-17.8); IMMATURE GRANULOCYTES 1.5 %; IMMATURE GRANULOCYTES ABSOLUTE 0.13 10/3/uL (0.0-0.11); LYMPHOCYTES 29.6 %; MEAN CORPUS HGB CONC 29.7 g/dL (32.0-36.0); MEAN CORPUSCULAR VOLUME 74.2 fL (80-100); MEAN PLATELET VOLUME 8.9 fL (9.2-13.0); MONOCYTES 17.3 %; MONOCYTES ABSOLUTE 1.52 10/3/uL (0.21-1.20); NEUTROPHILS 50.4 %; NEUTROPHILS ABSOLUTE 4.42 10/3/uL (2.02-8.40); PLATELET COUNT 306 10/3/uL (150-400); RBC DISTRIBUTION WIDTH 20.3 % (12.0-16.0); RED CELL COUNT 3.72 10/6/uL (4.7-6.1); WHITE BLOOD CELLS 8.8 10/3/uL (4.5-10.5)
[2017-05-08 05:02] LABS: MANUAL DIFF NO %
[2017-05-08 05:15] LABS: A/G RATIO 0.4 (0.7-1.9); CALCIUM, SERUM 8.8 MG/DL (8.5-10.4); CHLORIDE, SERUM 102 MMOL/L (96-112); CO2 (CARBON DIOXIDE) 23 MMOL/L (24-34); CREATININE 0.98 MG/DL (0.70-1.30); GFR AFRICAN AMERICAN 92 ML/MIN (>=60); GFR NON AFRICAN AMERICAN 79 ML/MIN (>=60); GLOBULIN 4.6 G/DL (2.5-4.1); GLUCOSE, SERUM 109 MG/DL (60-99); POTASSIUM, SERUM 4.4 MMOL/L (3.5-5.3); SGOT(AST) 294 U/L (5-40); SGPT(ALT) 60 U/L (5-65); SODIUM, SERUM 133 MMOL/L (135-148); TOTAL BILIRUBIN 2.2 MG/DL (0-1.2); TOTAL PROTEIN 6.6 G/DL (6.0-8.5)
[2017-05-08 05:16] LABS: ALKALINE PHOSPHATASE 458 U/L (45-117); BUN (BLOOD UREA NITROGEN) 14 MG/DL (6-23)
[2017-05-08 06:10] LABS: ANISOCYTOSIS 1+ (5-10/OIF) (0-5/OIF); MICROCYTES 1+ (5-10/OIF) (0-5/OIF); PLATELET ESTIMATE ADQ (ADEQUATE)
[2017-05-08] MEDS ORDERED: T PO (12:36)
[2017-05-08] MEDS ORDERED: VANCOMYCIN 125 MG PO (12:39)
[2017-05-08] MEDS ORDERED: NYS500UDL PO (12:40)
[2017-05-08] MEDS ORDERED: LIDOCAINE PO (12:43)
[2017-05-08] MEDS ORDERED: [UNRECOGNIZED DRUG - OTHER] PO (12:43)
== END 2017-05-08 15:35 | disposition home health service (06) | DRG 371 ==
LOC: 4EA 16:57
PROVIDERS: Internal Medicine; Nurse Practitioner Adult Health
DX: A04.7 Enterocolitis due to Clostridium difficile (principal); E43 Unspecified severe protein-calorie malnutrition; K52.1 Toxic gastroenteritis and colitis; I10 Essential (primary) hypertension; E11.9 Type 2 diabetes mellitus without complications; D50.9 Iron deficiency anemia, unspecified; C64.9 Malignant neoplasm of unspecified kidney, except renal pelvis; R13.10 Dysphagia, unspecified; Z68.30 Body mass index [BMI] 30.0-30.9, adult
CPT/HCPCS: 70450; 70496; 70498; 70551; 70552; 70553; 71010; 74177; 80053; 80069; 80076; 81001; 82140; 82150; 82550; 82553; 82962; 83615; 83690; 84145; 84443; 84484; 85025; 87040; 87493; 87493-59; 89055; 93005; 97161-GP; 97530-GP; A9270-GY; A9577; C8929; G8978-CL-GP; G8979-CJ-GP; Q9957; Q9967